=== PATIENT | female | born 1965 | race Caucasian/White ===

== ENCOUNTER 2024-07-28 11:27 | Emergency (ER) | payer BC, SELFPAY ==
[2024-07-28] VITALS (14 sets, daily range): BP systolic 147–189; BP diastolic 84–102; PULSE 62–76; RESP 18; TEMP 36.3; O2SAT 96–100; BMI 29.8
--- NOTE | 2024-07-28 11:37 | ED_ITS ---
HPI - Chest Pain General Time Seen by Provider: 11:37 Date Seen: 07/28/24 Chief Complaint: Chest Pain Stated Complaint: Chest pain, short of breath, lightheaded Time Seen by Provider: 07/28/24 11:36 Source: patient and RN notes reviewed Mode of arrival: ambulatory Limitations: no limitations History of Present Illness HPI narrative: This 4-year-old female is ambulatory into the ED with episode of chest pain, accompanied by her . Her chest symptoms have resolved at this time but she had an episode lasting about half an hour where she had sudden severe sub sternal chest pain, her right arm felt numb and tingly, she felt clammy and was short of breath at the time. She cannot say if there was any sense of any arrhythmia. They were just driving when this came on. She has not been sick with anything such as cough or cold symptoms. With the episode she did have nausea, did roll down the window as she thought she might vomit but never did. No abdominal pain, no sense of swallowing difficulty at the time. There certainly was no reflux symptoms. 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 She does not carry any diagnosis of prior thromboembolic disease, no prior ischemic cardiac disease. Both her and her note that she has significant psychosocial stressors at this time, there is significant work issues. They did not going to this further. She did also feel lightheaded at the time of her symptoms. Again these resolved without any intervention but she is just left with weakness feeling. She states that she has followed at the [facility] cardiology for her valve issue. Denies any recent prolonged immobilization or travel. MD complaint: chest pain Related Data On Oral Contraceptives: No Home Medications ?Medication ?Instructions ?Recorded ?Confirmed amlodipine 2.5 mg tablet 2.5 mg PO BID 07/28/24 07/28/24 lisinopril 10 mg tablet 10 mg PO DAILY 07/28/24 07/28/24 Allergies Allergy/AdvReac Type Severity Reaction Status Date / Time No Known Drug Allergies Allergy Verified 07/28/24 11:34 Review of Systems Status of ROS Reports: 6 or more systems reviewed and unremarkable except as noted in History and below PFSH PFSH Social History Smoking Status: Never smoker Do you use any of these nicotine containing products: None How often do you have a drink containing alcohol: never How often do you have six or more drinks on one occasion: Never AUDIT-C Alcohol total score: 0 Non-prescribed substance use: denies use Exam Const Vital Signs, click to edit/add: Vital Signs - 24 hr 07/28/24 11:30 07/28/24 11:45 07/28/24 12:00 Temperature 97.3 F L Pulse Rate 76 Pulse Rate [Right Pulse Oximeter] 76 Respiratory Rate 18 Blood Pressure 157/86 H Blood Pressure [Right Upper Arm] 189/102 H Pulse Oximetry 98 98 100 Oxygen Delivery Method Room Air 07/28/24 12:01 07/28/24 12:15 07/28/24 12:30 Temperature Pulse Rate 66 62 64 Pulse Rate [Right Pulse Oximeter] Respiratory Rate Blood Pressure Blood Pressure [Right Upper Arm] Pulse Oximetry 97 99 97 Oxygen Delivery Method 07/28/24 12:36 07/28/24 12:45 07/28/24 13:00 Temperature Pulse Rate 66 63 68 Pulse Rate [Right Pulse Oximeter] Respiratory Rate Blood Pressure 164/85 H Blood Pressure [Right Upper Arm] Pulse Oximetry 99 96 97 Oxygen Delivery Method 07/28/24 13:02 07/28/24 13:15 07/28/24 13:30 Temperature Pulse Rate 66 63 64 Pulse Rate [Right Pulse Oximeter] Respiratory Rate Blood Pressure 147/94 H Blood Pressure [Right Upper Arm] Pulse Oximetry 100 100 97 Oxygen Delivery Method 07/28/24 13:32 07/28/24 13:45 Temperature Pulse Rate 71 66 Pulse Rate [Right Pulse Oximeter] Respiratory Rate Blood Pressure 155/84 H Blood Pressure [Right Upper Arm] Pulse Oximetry 98 97 Oxygen Delivery Method This 58-year-old female is alert, interactive, tearful at times, seems anxious. Able to speak in complete sentences, speech normal. Pupils equal round reactive to like, sclera clear, symmetrical facial function. Neck is supple, no adenopathy, no noted jugular venous distension. She is able to sit up, lungs are clear, good air entry, no wheezing or crackles, no tachypnea. CV regular rate and rhythm, no murmur, normal S1-S2, no S3-S4. Abdomen is soft, no rebound or guarding, no organomegaly. She has no lower extremity edema, no calf tenderness. Was ambulatory into the ED of her own accord. Documenting provider has reviewed patient's vital signs: yes Course Course ED Course: Patient understands that we will be looking at her cardiopulmonary system, consider vascular etiologies. She will be on cardiac monitoring, pulse oximetry. Nursing staff is working to get the initial EKG. Will do portable chest x-ray and do full complement of labs. If D-dimer is elevated, may need chest CT imaging. At this time she is just feeling weak, she is to let us know if she has any return of her chest pain. Blood pressure is elevated, will see where her D-dimer is. She is notably anxious at this time but will continue to monitor. Reevaluation(s) Time of Reevaluation #1: 13:21 Reevaluation #1: Patient was resting, she states she is feeling fine. Reviewed with her that the initial point of care troponin, CBC, lactate, D-dimer are all within normal limits. Need confirmatory troponin back. Discussed with her that we will do a follow-up EKG and troponin at about 3:00 p.m. today. She needs to let us know if she has any return of her chest symptoms. Time of Reevaluation #2: 15:17 Reevaluation #2: Reviewed negative follow-up troponin. Patient will discharge to home for further outpatient follow-up. She is strongly advised to return with any recurrent symptoms for re-evaluation. Vital Signs Vital signs: Initial Vital Signs Temperature 97.3 F L 07/28/24 11:30 Temperature Source Temporal Artery Scan 07/28/24 11:30 Pulse Rate 76 07/28/24 11:30 Pulse Rhythm Regular 07/28/24 11:30 Respiratory Rate 18 07/28/24 11:30 Blood Pressure 189/102 H 07/28/24 11:30 Blood Pressure Mean 131 H 07/28/24 11:30 Blood Pressure Position Sitting 07/28/24 11:30 Pulse Oximetry 98 07/28/24 11:30 Oxygen Delivery Method Room Air 07/28/24 11:30 Vital Signs Temperature 97.3 F L 07/28/24 11:30 Pulse Rate 76 07/28/24 11:30 Respiratory Rate 18 07/28/24 11:30 Blood Pressure 189/102 H 07/28/24 11:30 Pulse Oximetry 98 07/28/24 11:30 Oxygen Delivery Method Room Air 07/28/24 11:30 Temperature 97.3 F L 07/28/24 11:30 Pulse Rate 66 07/28/24 13:45 Respiratory Rate 18 07/28/24 11:30 Blood Pressure 155/84 H 07/28/24 13:32 Pulse Oximetry 97 07/28/24 13:45 Oxygen Delivery Method Room Air 07/28/24 11:30 MDM - Chest Pain Lab Data Attestation: I reviewed the patient's lab results. Labs: Lab Results 07/28/24 07/28/24 07/28/24 Range/Units 12:13 12:15 15:00 WBC 7.45 (4.50-11.00) K/uL RBC 4.43 (4.00-5.20) m/uL Hgb 12.4 (12.0-16.0) gm/dL Hct 39.7 (33.0-51.0) % MCV 90 (80-100) fL MCH 28 (26-34) pg MCHC 31 L (32-36) gm/dL RDW Coeff of Feli 13.8 (11.5-15.5) % Plt Count 329 (140-440) K/uL Neut % (Auto) 63.7 (42.0-72.0) % Lymph % (Auto) 25.0 (20-44) % [place] % (Auto) 8.6 (0.0-11.0) % Eos % (Auto) 1.7 (0.0-7.0) % Baso % (Auto) 0.7 (0.0-3.0) % Neut # (Auto) 4.75 (1.7-7.0) K/uL Lymph # (Auto) 1.86 (0.90-2.90) K/uL [place] # (Auto) 0.60 (0.00-0.90) K/UL Eos # (Auto) 0.13 (0.00-0.50) K/uL Baso # (Auto) 0.05 (0.00-0.30) K/uL Abs Immat Gran (auto) 0.02 (0.00-0.30) K/uL Imm/Tot Granulo (auto) 0.3 % D-Dimer Quant (PE/DVT) 0.58 H (0.00-0.50) ug/ml VBG pH 7.385 (7.32-7.43) VBG pCO2 47 (40-50) mmHG VBG pO2 85.6 H (25-47) mmHG VBG HCO3 28 (21-28) mmol/L Sodium 140 (135-149) mmol/L Potassium 3.8 (3.6-5.1) mmol/L Chloride 104 (96-114) mmol/L Carbon Dioxide 29 (20-32) mmol/L Anion Gap 7 (7-15) mEq/L BUN 13 (7-30) mg/dL Creatinine 0.8 (0.5-1.5) mg/dL Estimated Creat Clear 72.72 Estimated GFR 84 ml/min Glucose 88 (60-115) mg/dL Lactate 1.1 (0.5-1.9) mmol/L Calcium 9.6 (8.4-10.6) mg/dL Magnesium 2.2 (1.5-2.6) mg/dL Total Bilirubin 0.4 (0.1-1.5) mg/dL AST 24 (12-35) U/L ALT 14 (4-35) U/L Alkaline Phosphatase 77 (40-150) U/L Troponin I < 0.01 L (0.01-0.04) ng/mL C-Reactive Protein 0.7 (0.5-1.0) mg/dL NT-Pro-B Natriuret Pep 153 pg/mL Total Protein 7.3 (6.0-8.3) g/dL Albumin 4.5 (3.3-5.0) g/dL Lipase 97 (23-300) U/L POC Troponin I 0.01 0.00 L (0.01-0.04) ng/ml Imaging Data Chest x-ray: Attestation: I have reviewed the pertinent imaging results. My impression: I see no acute pathology on my preliminary review of this portable chest x-ray, wait radiology over read. Radiologist's impression: Patient: KAMARI DALY Facility:?[facility] Patient ID:?[id number] Site Patient ID:?[id number]. Site :?[id number] Study:?XRay-Chest 1V PORTABLE-07/28/2024 12:11:10 PM Ordering Physician:Marisela Hirsch Final Report: INDICATION: Chest pain. History of fluttering heart valve. TECHNIQUE: Chest 1 portable view. COMPARISON: None. FINDINGS: No pneumothorax or pleural effusion. Lungs are clear. Enlargement of the cardiac silhouette may be related to technique. Mediastinal contours are otherwise within normal limits. No pulmonary edema. Upper abdomen and osseous structures as imaged show no acute abnormality. IMPRESSION: No evidence of acute cardiopulmonary disease. Dictated by Los Priest MD @ 07/28/2024 12:27:27 PM (Electronic Signature) ECG Data Attestation: I personally reviewed and interpreted this ECG as follows: (Sinus rhythm with sinus arrhythmia, 77 beats per minute, PVC seen. Nonspecific ST and T-wave abnormality in lead 3 AVF but not to, seen in V3 through V6 as well. No definitive ischemic change, no infarct seen.) ECG interpretation date: 07/28/24 ECG interpretation time: 11:41 Prior ECG tracings: not available for review Interpretation: Repeat EKG timed 2:56 p.m. showing normal sinus rhythm, 64 beats per minute. Flat to possibly mildly flipped T-waves lead 3 but otherwise no change. Looking back at her 1st EKG, there is some artifact that may be affecting some of the lateral precordial leads. 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 Do recommend that you discuss consideration for cardiac stress testing or further cardiac workup based on their recommendations. If you have recurrent spells of chest pain, do recommend re-evaluation in the interim. Other potential etiologies be sides cardiac and respiratory are musculoskeletal, esophageal spasm. Activity Level: Activity as Tolerated Discharge Diet: Heart Healthy (2 gm sodium, low fat) Prescriptions: No Action amlodipine 2.5 mg tablet 2.5 mg PO BID lisinopril 10 mg tablet 10 mg PO DAILY Follow Up/Referrals: Provider,Not a Local [Primary Care Provider] - Stand Alone Forms: [employer] Info Instructions
--- NOTE | 2024-07-28 11:45 | CRLHL7_ITS ---
For Patients: As a result of the Cures Act, medical imaging exams and procedure reports are released immediately into your electronic medical record. You may view this report before your referring provider. If you have questions, please contact your health care provider. INDICATION: Chest pain. History of fluttering heart valve. TECHNIQUE: Chest 1 portable view. COMPARISON: None. FINDINGS: No pneumothorax or pleural effusion. Lungs are clear. Enlargement of the cardiac silhouette may be related to technique. Mediastinal contours are otherwise within normal limits. No pulmonary edema. Upper abdomen and osseous structures as imaged show no acute abnormality. IMPRESSION: No evidence of acute cardiopulmonary disease. Dictated by Los Priest MD @ 07/28/2024 12:27:27 PM (Electronically Signed)
[2024-07-28 12:28] LABS: Basophils Absolute Auto 0.05 K/uL (0.00-0.30); Basophils Percent Auto 0.7 % (0.0-3.0); Eosinophils Absolute Auto 0.13 K/uL (0.00-0.50); Eosinophils Percent Auto 1.7 % (0.0-7.0); HCO3 VBG 28 mmol/L (21-28); Hematocrit 39.7 % (33.0-51.0); Hemoglobin* 12.4 gm/dL (12.0-16.0); Immature Granulocytes Abs Auto 0.02 K/uL (0.00-0.30); Immature Granulocytes Pct Auto 0.3 %; Lactate* 1.1 mmol/L (0.5-1.9); Lymphocytes Absolute Auto 1.86 K/uL (0.90-2.90); Mean Corpuscular HGB Conc 31 gm/dL (32-36); Mean Corpuscular Hemoglobin 28 pg (26-34); Mean Corpuscular Volume 90 fL (80-100); Monocytes Percent Auto 8.6 % (0.0-11.0); Neutrophils Absolute Auto 4.75 K/uL (1.7-7.0); Neutrophils Percent Auto 63.7 % (42.0-72.0); PCO2 VBG 47 mmHG (40-50); PO2 VBG 85.6 mmHG (25-47); Platelet Count* 329 K/uL (140-440); RDW Coefficient of Variation % 13.8 % (11.5-15.5); Red Blood Count 4.43 m/uL (4.00-5.20); White Blood Count* 7.45 K/uL (4.50-11.00); pH VBG 7.385 (7.32-7.43)
[2024-07-28 12:32] LABS: Troponin, Point-of-Care* 0.01 ng/ml (0.01-0.04)
[2024-07-28 12:32] LABS: Slide Review Reflex No
[2024-07-28 12:55] LABS: D Dimer Quantitative* 0.58 ug/ml (0.00-0.50)
[2024-07-28 13:23] LABS: Anion Gap 7 mEq/L (7-15); Carbon Dioxide* 29 mmol/L (20-32); Chloride* 104 mmol/L (96-114); Potassium* 3.8 mmol/L (3.6-5.1); Sodium* 140 mmol/L (135-149)
[2024-07-28 13:24] LABS: Alanine Aminotransferase* 14 U/L (4-35); Albumin* 4.5 g/dL (3.3-5.0); Alkaline Phosphatase* 77 U/L (40-150); Aspartate Amino Transferase* 24 U/L (12-35); Bilirubin Total* 0.4 mg/dL (0.1-1.5); Blood Urea Nitrogen* 13 mg/dL (7-30); C Reactive Protein* 0.7 mg/dL (0.5-1.0); Calcium* 9.6 mg/dL (8.4-10.6); Creatinine* 0.8 mg/dL (0.5-1.5); Est. Creatinine Clearance* 72.72; Estimated Glomerular Filt Rate 84 ml/min; Glucose* 88 mg/dL (60-115); Magnesium* 2.2 mg/dL (1.5-2.6); NT Pro B Type NatriureticPept* 153 pg/mL; Total Protein* 7.3 g/dL (6.0-8.3); Troponin I* < 0.01 ng/mL (0.01-0.04)
[2024-07-28 13:25] LABS: Lipase* 97 U/L (23-300)
== END 2024-07-28 15:22 | disposition home or self-care (01) ==
PROVIDERS: Emergency Provider Family Medicine
DX: R07.9 Chest pain, unspecified (principal)
CPT/HCPCS: 36415; 71045; 80053; 82803; 83605; 83690; 83735; 83880; 84484; 85025; 85379; 86140; 93005; 94761; 99284; 99285